=== PATIENT | female | born 1985 | race Caucasian/White ===

== ENCOUNTER → 2024-04-11 10:36 | Outpatient (REF) | payer BC, SELFPAY | LOC: HWRAD 10:36 | PROVIDERS: ATTENDING PHYSICIAN Obstetrics & Gynecology; FAMILY PHYSICIAN Family Medicine | DX: N92.6 Irregular menstruation, unspecified (principal); R39.9 Unspecified symptoms and signs involving the genitourinary system | CPT/HCPCS: 76830; 76856 ==